=== PATIENT | male | born 1960 | race Hispanic/Latino ===

== ENCOUNTER 2019-06-29 16:55 | Inpatient (IN) | payer OTHER ==
[~2019-06-29] VITALS: Ht 167.6 cm; Wt 48.6 kg
[2019-06-29 17:40] LABS: BASOPHILS % (AUTO) 0.7 % (0.0-5.0); EOSINOPHILS % (AUTO) 0.2 % (0.0-8.0); HEMATOCRIT 40.6 % (42-54); LYMPHOCYTES % (AUTO) 8.8 % (21.0-51.0); MEAN CORPUSCULAR HEMOGLOBIN 30.2 pg (27.0-33.0); MEAN CORPUSCULAR HGB CONC 33.7 g/dL (32.0-36.0); MEAN CORPUSCULAR VOLUME 89.6 fL (79-99); MONOCYTES % (AUTO) 6.2 % (3.0-13.0); NEUTROPHILS % (AUTO) 78.5 % (40.0-77.0); NUCLEATED RED BLOOD CELLS 1.7 % (0.0-0.19); PLATELET COUNT (AUTO) 162 K/uL (130-400); RED BLOOD CELL COUNT(AUTO) 4.53 MIL/uL (4.50-6.20); RED CELL DISTRIBUTION WIDTH 14.1 % (11.0-15.5); WHITE BLOOD COUNT (AUTO) 16.8 K/uL (4.8-10.8)
[2019-06-29 17:50] LABS: CREATININE 0.8 mg/dL (0.5-1.5); POTASSIUM 4.1 mmol/L (3.5-5.1)
[2019-06-29] MEDS ORDERED: INSULIN HUMULIN R 100 UNIT/ML 3ML ONE (18:06)
[2019-06-29] MEDS ORDERED: ONDANSETRON HCL 4 MG/2 ML VIAL IV PRN (19:00)
[2019-06-29] MEDS ORDERED: MORPHINE SULFATE 2 MG/ML 1ML SYG IV PRN (19:00)
[2019-06-29] MEDS ORDERED: ACETAMINOPHEN 325 MG TAB PO PRN ×2 (19:00)
[2019-06-29] MEDS ORDERED: ALBUTEROL INHALER 90MCG/INH IH PRN (19:30)
[2019-06-29] MEDS: CEFTRIAXONE SODIUM 1 GM IV SCH (20:00)
[2019-06-29] MEDS: AZITHROMYCIN 500MG+NS 250ML 250 ML IV SCH (20:00)
[2019-06-29] MEDS: PHARMACY COMMUNICATION MISC SCH (20:00)
[2019-06-29 20:58] LABS: ABG BASE EXCESS 0.2 mmol/L (-2.0-3.0); ABG HCO3 23.5 mmol/L (21.0-28.0); ABG OXYGEN SATURATION 94.5 % (95.0-99.0); ABG PCO2 34 mmHg (35-48)
[2019-06-29] MEDS: FAMOTIDINE 20MG TAB 20 MG TAB PO SCH (21:00)
[2019-06-29] MEDS: INSULIN HUMULIN R 100 UNIT/ML 3ML SQ SCH (21:00)
[2019-06-29] MEDS ORDERED: ALBUTEROL SULFATE 0.083% 2.5 MG/3 ML INH IH SCH (22:00)
[2019-06-29 23:00] LABS: CRP QUANTITATIVE 333.7 mg/L (0.00-9.0)
[2019-06-30] MEDS: PHARMACY COMMUNICATION MISC SCH ×6 (04:00→20:00)
[2019-06-30] MEDS ORDERED: CEFTRIAXONE SODIUM 1 GM ONE (04:12)
[2019-06-30] MEDS ORDERED: AZITHROMYCIN 500MG+NS 250ML 250 ML IV ONE (04:12)
[2019-06-30 04:42] LABS: BASOPHILS % (AUTO) 0.8 % (0.0-5.0); HEMATOCRIT 39.4 % (42-54); LYMPHOCYTES % (AUTO) 6.6 % (21.0-51.0); MEAN CORPUSCULAR HEMOGLOBIN 30.5 pg (27.0-33.0); MEAN CORPUSCULAR HGB CONC 33.8 g/dL (32.0-36.0); MEAN CORPUSCULAR VOLUME 90.4 fL (79-99); MONOCYTES % (AUTO) 5.5 % (3.0-13.0); NEUTROPHILS % (AUTO) 81.7 % (40.0-77.0); NUCLEATED RED BLOOD CELLS 1.9 % (0.0-0.19); PLATELET COUNT (AUTO) 151 K/uL (130-400); RED BLOOD CELL COUNT(AUTO) 4.36 MIL/uL (4.50-6.20); RED CELL DISTRIBUTION WIDTH 13.8 % (11.0-15.5); WHITE BLOOD COUNT (AUTO) 16.4 K/uL (4.8-10.8)
[2019-06-30 05:16] LABS: CREATININE 0.7 mg/dL (0.5-1.5); POTASSIUM 4.1 mmol/L (3.5-5.1)
[2019-06-30] MEDS: INSULIN HUMULIN R 100 UNIT/ML 3ML SQ SCH ×4 (07:30→21:00)
[2019-06-30] MEDS ORDERED: ENOXAPARIN SODIUM 30 MG/0.3 ML SQ ONE (07:39)
[2019-06-30] MEDS ORDERED: FAMOTIDINE 20MG TAB 20 MG TAB ONE (07:39)
[2019-06-30] MEDS ORDERED: ENOXAPARIN SODIUM 30 MG/0.3 ML SQ SCH (09:00)
[2019-06-30] MEDS ORDERED: ENOXAPARIN SODIUM 40 MG/0.4 ML SYRINGE SQ SCH (09:00)
[2019-06-30] MEDS ORDERED: INSULIN HUMULIN R 100 UNIT/ML 3ML ONE ×2 (09:13→22:21)
[2019-06-30 10:44] LABS: CRP QUANTITATIVE 210.7 mg/L (0.00-9.0)
[2019-06-30] MEDS: AZITHROMYCIN 500MG+NS 250ML 250 ML IV SCH (20:00)
[2019-06-30] MEDS: CEFTRIAXONE SODIUM 1 GM IV SCH (20:00)
[2019-06-30] MEDS: FAMOTIDINE 20MG TAB 20 MG TAB PO SCH (21:00)
[2019-06-30] MEDS ORDERED: ENOXAPARIN SODIUM 60 MG/0.6 ML SQ ONE (21:56)
[2019-06-30] MEDS: ENOXAPARIN SODIUM 60 MG/0.6 ML SQ SCH (21:59)
[2019-07-01] VITALS (29 sets, daily range): BP systolic 101–133; BP diastolic 50–87
[2019-07-01] MEDS ORDERED: SODIUM CHLORIDE 0.9% 250 ML IV ONE (03:28)
[2019-07-01] MEDS: PHARMACY COMMUNICATION MISC SCH ×6 (04:00→20:00)
[2019-07-01 05:04] LABS: BASOPHILS % (AUTO) 0.8 % (0.0-5.0); EOSINOPHILS % (AUTO) 1.6 % (0.0-8.0); HEMATOCRIT 38.2 % (42-54); LYMPHOCYTES % (AUTO) 10.6 % (21.0-51.0); MEAN CORPUSCULAR HEMOGLOBIN 30.2 pg (27.0-33.0); MEAN CORPUSCULAR HGB CONC 33.2 g/dL (32.0-36.0); MEAN CORPUSCULAR VOLUME 90.7 fL (79-99); MONOCYTES % (AUTO) 5.2 % (3.0-13.0); NEUTROPHILS % (AUTO) 77.1 % (40.0-77.0); NUCLEATED RED BLOOD CELLS 0.4 % (0.0-0.19); PLATELET COUNT (AUTO) 214 K/uL (130-400); RED BLOOD CELL COUNT(AUTO) 4.21 MIL/uL (4.50-6.20); RED CELL DISTRIBUTION WIDTH 14.1 % (11.0-15.5); WHITE BLOOD COUNT (AUTO) 11.5 K/uL (4.8-10.8)
[2019-07-01 05:21] LABS: CREATININE 0.6 mg/dL (0.5-1.5); POTASSIUM 3.1 mmol/L (3.5-5.1)
[2019-07-01 05:44] LABS: CRP QUANTITATIVE 253.6 mg/L (0.00-9.0)
[2019-07-01] MEDS: INSULIN HUMULIN R 100 UNIT/ML 3ML SQ SCH ×4 (06:30→21:26)
[2019-07-01] MEDS: FAMOTIDINE 20MG TAB 20 MG TAB PO SCH ×2 (08:09→19:46)
[2019-07-01] MEDS: ENOXAPARIN SODIUM 60 MG/0.6 ML SQ SCH ×2 (08:10→19:47)
[2019-07-01] MEDS ORDERED: POTASSIUM CHLORIDE 20MEQ/100ML 100 ML IV PRN (13:15)
[2019-07-01] MEDS ORDERED: LIDOCAINE HCL-MPF 1% 2ML VIAL IV PRN (13:15)
--- NOTE | 2019-07-01 14:00 | NUR ---
DC PLAN PATIENT IN [facility] ICU. CALLED SPOUSE. NO ANSWER LEFT MESSAGE. Addendum: 07/01/19 at 1401 by DANNIE LEWIS RN CM Amended: Links added.
[2019-07-01] MEDS: POTASSIUM CHLORIDE 10% ELIXIR 20 MEQ/15 ML UDCUP PO PRN (17:05)
--- NOTE | 2019-07-01 17:05 | NUR ---
SUSIP SW attempted to contact patient's spouse, Kerri Zazueta, [phone] but was only able to leave a message. Initial assessment pending.
[2019-07-01] MEDS: CEFTRIAXONE SODIUM 1 GM IV SCH (19:46)
[2019-07-01] MEDS: AZITHROMYCIN 500MG+NS 250ML 250 ML IV SCH (19:46)
[2019-07-02] VITALS (25 sets, daily range): BP systolic 110–148; BP diastolic 65–96
[2019-07-02 06:20] LABS: BASOPHILS % (AUTO) 1.1 % (0.0-5.0); EOSINOPHILS % (AUTO) 1.9 % (0.0-8.0); HEMATOCRIT 37.6 % (42-54); LYMPHOCYTES % (AUTO) 15.1 % (21.0-51.0); MEAN CORPUSCULAR HEMOGLOBIN 30.9 pg (27.0-33.0); MEAN CORPUSCULAR HGB CONC 34.3 g/dL (32.0-36.0); MONOCYTES % (AUTO) 6.9 % (3.0-13.0); NEUTROPHILS % (AUTO) 70.3 % (40.0-77.0); PLATELET COUNT (AUTO) 292 K/uL (130-400); RED BLOOD CELL COUNT(AUTO) 4.18 MIL/uL (4.50-6.20); RED CELL DISTRIBUTION WIDTH 14.1 % (11.0-15.5); WHITE BLOOD COUNT (AUTO) 8.7 K/uL (4.8-10.8)
[2019-07-02] MEDS: INSULIN HUMULIN R 100 UNIT/ML 3ML SQ SCH ×4 (06:39→22:20)
[2019-07-02 06:54] LABS: CREATININE 0.6 mg/dL (0.5-1.5); POTASSIUM 3.9 mmol/L (3.5-5.1)
[2019-07-02 08:32] LABS: CRP QUANTITATIVE 191.8 mg/L (0.00-9.0)
[2019-07-02] MEDS: FAMOTIDINE 20MG TAB 20 MG TAB PO SCH ×2 (08:45→20:33)
[2019-07-02] MEDS: ENOXAPARIN SODIUM 60 MG/0.6 ML SQ SCH ×2 (08:45→20:33)
[2019-07-02] MEDS: AZITHROMYCIN 500MG+NS 250ML 250 ML IV SCH (20:31)
[2019-07-02] MEDS: CEFTRIAXONE SODIUM 1 GM IV SCH (20:34)
[2019-07-03] VITALS (24 sets, daily range): BP systolic 95–160; BP diastolic 62–82
[2019-07-03 05:05] LABS: BASOPHILS % (AUTO) 1.3 % (0.0-5.0); EOSINOPHILS % (AUTO) 3.8 % (0.0-8.0); LYMPHOCYTES % (AUTO) 17.7 % (21.0-51.0); MEAN CORPUSCULAR HEMOGLOBIN 29.9 pg (27.0-33.0); MEAN CORPUSCULAR HGB CONC 33.2 g/dL (32.0-36.0); MONOCYTES % (AUTO) 10.6 % (3.0-13.0); NEUTROPHILS % (AUTO) 62.1 % (40.0-77.0); PLATELET COUNT (AUTO) 369 K/uL (130-400); RED BLOOD CELL COUNT(AUTO) 4.11 MIL/uL (4.50-6.20); RED CELL DISTRIBUTION WIDTH 14.2 % (11.0-15.5); WHITE BLOOD COUNT (AUTO) 6.9 K/uL (4.8-10.8)
[2019-07-03 05:22] LABS: CREATININE 0.5 mg/dL (0.5-1.5); CRP QUANTITATIVE 123.3 mg/L (0.00-9.0); POTASSIUM 3.5 mmol/L (3.5-5.1)
[2019-07-03] MEDS: INSULIN HUMULIN R 100 UNIT/ML 3ML SQ SCH ×4 (06:34→22:23)
[2019-07-03] MEDS: FAMOTIDINE 20MG TAB 20 MG TAB PO SCH ×2 (08:38→20:18)
[2019-07-03] MEDS: POTASSIUM CHLORIDE 20 MEQ ERTAB PO PRN (08:39)
[2019-07-03] MEDS: ENOXAPARIN SODIUM 60 MG/0.6 ML SQ SCH ×2 (08:39→20:19)
[2019-07-03] MEDS: AZITHROMYCIN 500MG+NS 250ML 250 ML IV SCH (20:17)
[2019-07-03] MEDS: CEFTRIAXONE SODIUM 1 GM IV SCH (20:18)
[2019-07-04] VITALS (20 sets, daily range): BP systolic 123–150; BP diastolic 65–79
[2019-07-04 05:32] LABS: BASOPHILS % (AUTO) 1.1 % (0.0-5.0); EOSINOPHILS % (AUTO) 2.1 % (0.0-8.0); HEMATOCRIT 38.6 % (42-54); LYMPHOCYTES % (AUTO) 16.7 % (21.0-51.0); MEAN CORPUSCULAR HEMOGLOBIN 29.5 pg (27.0-33.0); MEAN CORPUSCULAR HGB CONC 33.2 g/dL (32.0-36.0); MEAN CORPUSCULAR VOLUME 88.9 fL (79-99); MONOCYTES % (AUTO) 11.3 % (3.0-13.0); NEUTROPHILS % (AUTO) 64.8 % (40.0-77.0); PLATELET COUNT (AUTO) 462 K/uL (130-400); RED BLOOD CELL COUNT(AUTO) 4.34 MIL/uL (4.50-6.20); WHITE BLOOD COUNT (AUTO) 8.2 K/uL (4.8-10.8)
[2019-07-04 05:53] LABS: ALBUMIN 1.7 g/dL (3.5-5.0); BILIRUBIN,TOTAL 0.4 mg/dL (0.2-1.0); CREATININE 0.6 mg/dL (0.5-1.5); CRP QUANTITATIVE 90.6 mg/L (0.00-9.0); POTASSIUM 3.8 mmol/L (3.5-5.1); TOTAL PROTEIN, SERUM 7.2 g/dL (6.0-8.3)
[2019-07-04] MEDS: INSULIN HUMULIN R 100 UNIT/ML 3ML SQ SCH ×4 (06:17→20:33)
[2019-07-04] MEDS: FAMOTIDINE 20MG TAB 20 MG TAB PO SCH ×2 (08:23→20:12)
[2019-07-04] MEDS: ENOXAPARIN SODIUM 60 MG/0.6 ML SQ SCH ×2 (08:23→20:12)
[2019-07-04] MEDS: POTASSIUM CHLORIDE 20 MEQ ERTAB PO PRN (17:09)
[2019-07-04] MEDS: CEFTRIAXONE SODIUM 1 GM IV SCH (20:11)
[2019-07-04] MEDS: AZITHROMYCIN 500MG+NS 250ML 250 ML IV SCH (20:12)
[2019-07-05] VITALS (18 sets, daily range): BP systolic 124–142; BP diastolic 68–86
[2019-07-05 05:11] LABS: EOSINOPHILS % (AUTO) 2.1 % (0.0-8.0); HEMATOCRIT 39.4 % (42-54); LYMPHOCYTES % (AUTO) 13.3 % (21.0-51.0); MEAN CORPUSCULAR HEMOGLOBIN 29.9 pg (27.0-33.0); MEAN CORPUSCULAR HGB CONC 33.5 g/dL (32.0-36.0); MEAN CORPUSCULAR VOLUME 89.1 fL (79-99); MONOCYTES % (AUTO) 12.8 % (3.0-13.0); NEUTROPHILS % (AUTO) 67.1 % (40.0-77.0); PLATELET COUNT (AUTO) 496 K/uL (130-400); RED BLOOD CELL COUNT(AUTO) 4.42 MIL/uL (4.50-6.20); RED CELL DISTRIBUTION WIDTH 13.9 % (11.0-15.5); WHITE BLOOD COUNT (AUTO) 8.7 K/uL (4.8-10.8)
[2019-07-05 05:38] LABS: ALBUMIN 1.8 g/dL (3.5-5.0); BILIRUBIN,TOTAL 0.5 mg/dL (0.2-1.0); CREATININE 0.7 mg/dL (0.5-1.5); POTASSIUM 4.1 mmol/L (3.5-5.1); TOTAL PROTEIN, SERUM 7.5 g/dL (6.0-8.3)
[2019-07-05] MEDS: INSULIN HUMULIN R 100 UNIT/ML 3ML SQ SCH ×4 (06:14→21:13)
[2019-07-05] MEDS: FAMOTIDINE 20MG TAB 20 MG TAB PO SCH ×2 (08:40→20:02)
[2019-07-05] MEDS: ENOXAPARIN SODIUM 60 MG/0.6 ML SQ SCH ×2 (08:41→20:02)
[2019-07-05] MEDS ORDERED: GUAIFENESIN-CODEINE 5 ML SYRUP PO PRN (11:45)
[2019-07-05] MEDS ORDERED: IOHEXOL-350 75 ML VIAL IV ONE (12:29)
--- NOTE | 2019-07-05 14:30 | NUR ---
CM NOTE SW attempted to contact patient's spouse, Kerri Zazueta, [phone] but was only able to leave a message. ALICIA will continue to follow up.
--- NOTE | 2019-07-05 15:02 | NUR ---
KILLIAN SCREEN - LOS X 6, BMI <19.0 Pt admitted with Acute Respiratory Distress. Pt with increased nutrient needs. Recommend 60mL promod BID. Recommend 500mg Vitamin C, BID. RD to continue to monitor. Please notify as additional nutrition concerns arise. Thank you. Addendum: 07/05/19 at [address] Amended: Links added.
[2019-07-05] MEDS ORDERED: INSU100V12 SQ (18:52)
[2019-07-05] MEDS: METHYLPREDNISOLONE SOD SUCC 40MG/ML 1ML IVP SCH (20:02)
[2019-07-05] MEDS: CEFTRIAXONE SODIUM 1 GM IV SCH (20:02)
[2019-07-05] MEDS: AZITHROMYCIN 500MG+NS 250ML 250 ML IV SCH (20:02)
[2019-07-06] VITALS (23 sets, daily range): BP systolic 113–149; BP diastolic 64–85
[2019-07-06] MEDS: INSULIN HUMULIN R 100 UNIT/ML 3ML SQ SCH ×4 (05:56→20:42)
[2019-07-06] MEDS: INSULIN GLARGINE 100 UNITS/ML 10 ML VIAL SQ SCH ×2 (05:59→17:47)
[2019-07-06 06:36] LABS: CRP QUANTITATIVE 128.6 mg/L (0.00-9.0)
[2019-07-06 06:49] LABS: ALBUMIN 1.9 g/dL (3.5-5.0); BILIRUBIN,TOTAL 0.3 mg/dL (0.2-1.0); CREATININE 0.6 mg/dL (0.5-1.5); POTASSIUM 4.4 mmol/L (3.5-5.1)
[2019-07-06 07:01] LABS: BASOPHILS % (AUTO) 0.8 % (0.0-5.0); EOSINOPHILS % (AUTO) 0.4 % (0.0-8.0); HEMATOCRIT 40.8 % (42-54); LYMPHOCYTES % (AUTO) 6.7 % (21.0-51.0); MEAN CORPUSCULAR HEMOGLOBIN 29.7 pg (27.0-33.0); MEAN CORPUSCULAR HGB CONC 33.1 g/dL (32.0-36.0); MEAN CORPUSCULAR VOLUME 89.7 fL (79-99); MONOCYTES % (AUTO) 2.8 % (3.0-13.0); PLATELET COUNT (AUTO) 522 K/uL (130-400); RED BLOOD CELL COUNT(AUTO) 4.55 MIL/uL (4.50-6.20); RED CELL DISTRIBUTION WIDTH 14.3 % (11.0-15.5); WHITE BLOOD COUNT (AUTO) 9.9 K/uL (4.8-10.8)
[2019-07-06] MEDS: METHYLPREDNISOLONE SOD SUCC 40MG/ML 1ML IVP SCH ×2 (08:05→20:38)
[2019-07-06] MEDS: FAMOTIDINE 20MG TAB 20 MG TAB PO SCH ×2 (08:05→20:38)
[2019-07-06] MEDS: ENOXAPARIN SODIUM 60 MG/0.6 ML SQ SCH ×2 (08:05→20:39)
[2019-07-06] MEDS: AZITHROMYCIN 500MG+NS 250ML 250 ML IV SCH (20:38)
[2019-07-06] MEDS: CEFTRIAXONE SODIUM 1 GM IV SCH (20:38)
[2019-07-07] VITALS (17 sets, daily range): BP systolic 116–171; BP diastolic 64–88
[2019-07-07] MEDS: INSULIN HUMULIN R 100 UNIT/ML 3ML SQ SCH ×4 (07:30→20:38)
[2019-07-07] MEDS: FAMOTIDINE 20MG TAB 20 MG TAB PO SCH ×2 (08:18→20:22)
[2019-07-07] MEDS: METHYLPREDNISOLONE SOD SUCC 40MG/ML 1ML IVP SCH ×2 (08:18→20:22)
[2019-07-07] MEDS: ENOXAPARIN SODIUM 60 MG/0.6 ML SQ SCH ×2 (08:18→20:24)
[2019-07-07] MEDS: INSULIN GLARGINE 100 UNITS/ML 10 ML VIAL SQ SCH ×2 (08:40→17:01)
[2019-07-07 10:30] LABS: BASOPHILS % (AUTO) 0.3 % (0.0-5.0); HEMATOCRIT 38.3 % (42-54); LYMPHOCYTES % (AUTO) 10.6 % (21.0-51.0); MEAN CORPUSCULAR HEMOGLOBIN 30.5 pg (27.0-33.0); MEAN CORPUSCULAR HGB CONC 33.4 g/dL (32.0-36.0); MEAN CORPUSCULAR VOLUME 91.2 fL (79-99); MONOCYTES % (AUTO) 6.5 % (3.0-13.0); NEUTROPHILS % (AUTO) 81.5 % (40.0-77.0); PLATELET COUNT (AUTO) 592 K/uL (130-400); RED CELL DISTRIBUTION WIDTH 13.9 % (11.0-15.5)
[2019-07-07 10:39] LABS: CREATININE 0.6 mg/dL (0.5-1.5); POTASSIUM 3.8 mmol/L (3.5-5.1)
[2019-07-07 10:42] LABS: CRP QUANTITATIVE 54.7 mg/L (0.00-9.0); PHOSPHORUS 3.7 mg/dL (2.5-4.9)
[2019-07-07] MEDS: AZITHROMYCIN 500MG+NS 250ML 250 ML IV SCH (20:22)
[2019-07-07] MEDS: CEFTRIAXONE SODIUM 1 GM IV SCH (20:22)
[2019-07-08] VITALS (22 sets, daily range): BP systolic 126–159; BP diastolic 67–93
[2019-07-08 04:57] LABS: BASOPHILS % (AUTO) 0.2 % (0.0-5.0); HEMATOCRIT 38.3 % (42-54); LYMPHOCYTES % (AUTO) 15.7 % (21.0-51.0); MEAN CORPUSCULAR HEMOGLOBIN 29.9 pg (27.0-33.0); MEAN CORPUSCULAR HGB CONC 32.9 g/dL (32.0-36.0); MONOCYTES % (AUTO) 6.3 % (3.0-13.0); NEUTROPHILS % (AUTO) 76.9 % (40.0-77.0); PLATELET COUNT (AUTO) 620 K/uL (130-400); RED BLOOD CELL COUNT(AUTO) 4.21 MIL/uL (4.50-6.20); RED CELL DISTRIBUTION WIDTH 14.1 % (11.0-15.5); WHITE BLOOD COUNT (AUTO) 9.5 K/uL (4.8-10.8)
--- NOTE | 2019-07-08 05:00 | NUR ---
Ignacia CAMP ASSISTANT called to see if patient was fariha enough to move out of ICU. CAMP ASSISTANT stated that O2 is too high to move out.
[2019-07-08 05:11] LABS: CREATININE 0.6 mg/dL (0.5-1.5); CRP QUANTITATIVE 35.7 mg/L (0.00-9.0); POTASSIUM 3.9 mmol/L (3.5-5.1)
[2019-07-08] MEDS: INSULIN HUMULIN R 100 UNIT/ML 3ML SQ SCH ×4 (05:20→20:48)
[2019-07-08] MEDS: INSULIN GLARGINE 100 UNITS/ML 10 ML VIAL SQ SCH ×3 (05:20→23:43)
[2019-07-08] MEDS: METHYLPREDNISOLONE SOD SUCC 40MG/ML 1ML IVP SCH ×2 (10:23→20:46)
[2019-07-08] MEDS: ENOXAPARIN SODIUM 60 MG/0.6 ML SQ SCH ×2 (10:23→20:43)
[2019-07-08] MEDS: FAMOTIDINE 20MG TAB 20 MG TAB PO SCH ×2 (10:23→20:43)
--- NOTE | 2019-07-08 13:03 | NUR ---
KILLIAN FOLLOW UP NOTE Pt with 75gm CC diet order. 60mL Promod BID in place for increased protein nutrition needs. Recommend to continue POC. Please notify as additional nutrition concerns arise. Thank you. Addendum: 07/08/19 at [address] Amended: Links added.
[2019-07-08] MEDS: CEFTRIAXONE SODIUM 1 GM IV SCH (20:42)
[2019-07-08] MEDS: AZITHROMYCIN 500MG+NS 250ML 250 ML IV SCH (20:42)
[2019-07-08] MEDS ORDERED: SODIUM BICARB 50MEQ 50ML VIAL IV STA (23:26)
[2019-07-09] VITALS (22 sets, daily range): BP systolic 124–151; BP diastolic 62–115
[2019-07-09] MEDS ORDERED: METHYLPREDNISOLONE SOD SUCC 40MG/ML 1ML IVP SCH (00:15)
[2019-07-09] MEDS: INSULIN LISPRO 100 UNIT/ML 3ML SQ SCH ×7 (05:52→21:15)
[2019-07-09] MEDS ORDERED: SODIUM BICARB 50MEQ 50ML VIAL IV SCH (06:00)
[2019-07-09 06:21] LABS: BASOPHILS % (AUTO) 0.3 % (0.0-5.0); HEMATOCRIT 41.8 % (42-54); LYMPHOCYTES % (AUTO) 10.8 % (21.0-51.0); MEAN CORPUSCULAR HEMOGLOBIN 29.8 pg (27.0-33.0); MEAN CORPUSCULAR HGB CONC 32.8 g/dL (32.0-36.0); MEAN CORPUSCULAR VOLUME 90.9 fL (79-99); MONOCYTES % (AUTO) 8.6 % (3.0-13.0); NEUTROPHILS % (AUTO) 79.1 % (40.0-77.0); PLATELET COUNT (AUTO) 642 K/uL (130-400); RED CELL DISTRIBUTION WIDTH 14.2 % (11.0-15.5); WHITE BLOOD COUNT (AUTO) 11.9 K/uL (4.8-10.8)
[2019-07-09 06:31] LABS: CREATININE 0.7 mg/dL (0.5-1.5); CRP QUANTITATIVE 23.7 mg/L (0.00-9.0); POTASSIUM 3.8 mmol/L (3.5-5.1)
[2019-07-09 07:06] LABS: B-TYPE NATRIURETIC PEPTIDE 13 pg/mL (0-100)
[2019-07-09] MEDS: ENOXAPARIN SODIUM 60 MG/0.6 ML SQ SCH ×2 (08:22→21:11)
[2019-07-09] MEDS: FAMOTIDINE 20MG TAB 20 MG TAB PO SCH ×2 (08:22→21:10)
[2019-07-09] MEDS: METHYLPREDNISOLONE SOD SUCC 40MG/ML 1ML IVP SCH ×2 (08:22→21:08)
[2019-07-09 08:38] LABS: ABG HCO3 26.3 mmol/L (21.0-28.0); ABG OXYGEN SATURATION 94.7 % (95.0-99.0); ABG PCO2 40 mmHg (35-48)
[2019-07-09] MEDS: INSULIN GLARGINE 100 UNITS/ML 10 ML VIAL SQ SCH (21:10)
[2019-07-10] VITALS (23 sets, daily range): BP systolic 116–159; BP diastolic 66–92
[2019-07-10] MEDS: INSULIN LISPRO 100 UNIT/ML 3ML SQ SCH ×7 (05:32→20:33)
[2019-07-10 05:56] LABS: HEMATOCRIT 40.8 % (42-54); MEAN CORPUSCULAR HEMOGLOBIN 29.8 pg (27.0-33.0); MEAN CORPUSCULAR HGB CONC 32.8 g/dL (32.0-36.0); MEAN CORPUSCULAR VOLUME 90.9 fL (79-99); PLATELET COUNT (AUTO) 557 K/uL (130-400); RED BLOOD CELL COUNT(AUTO) 4.49 MIL/uL (4.50-6.20); RED CELL DISTRIBUTION WIDTH 14.1 % (11.0-15.5); WHITE BLOOD COUNT (AUTO) 9.6 K/uL (4.8-10.8)
[2019-07-10 06:12] LABS: CREATININE 0.5 mg/dL (0.5-1.5); POTASSIUM 4.1 mmol/L (3.5-5.1)
[2019-07-10 07:34] LABS: LYMPHOCYTES % (MANUAL) 17 % (22-44); MONOCYTES % (MANUAL) 11 % (2-9); SEGMENTED NEUTROPHILS % 72 % (40-70)
[2019-07-10 07:35] LABS: PLATELET MORPHOLOGY COMMENT ADEQUATE
[2019-07-10 08:17] LABS: MAN.DIFF COMMENT-IMPRESSION MANUAL DIFFERENTIAL
[2019-07-10] MEDS: FAMOTIDINE 20MG TAB 20 MG TAB PO SCH ×2 (08:27→20:20)
[2019-07-10] MEDS: METHYLPREDNISOLONE SOD SUCC 40MG/ML 1ML IVP SCH ×2 (08:28→20:20)
[2019-07-10] MEDS: ENOXAPARIN SODIUM 60 MG/0.6 ML SQ SCH ×2 (08:37→20:22)
--- NOTE | 2019-07-10 12:23 | NUR ---
PATIENT TO BE SEEN BY PT ON THURSDAY. Addendum: 07/10/19 at 1224 by MAI STALEY PT Amended: Links added.
[2019-07-10] MEDS: INSULIN GLARGINE 100 UNITS/ML 10 ML VIAL SQ SCH (20:35)
[2019-07-11] VITALS (24 sets, daily range): BP systolic 123–164; BP diastolic 66–96
[2019-07-11] MEDS: INSULIN LISPRO 100 UNIT/ML 3ML SQ SCH ×7 (06:20→21:00)
[2019-07-11] MEDS: FAMOTIDINE 20MG TAB 20 MG TAB PO SCH ×2 (08:38→20:54)
[2019-07-11] MEDS: METHYLPREDNISOLONE SOD SUCC 40MG/ML 1ML IVP SCH ×2 (08:39→20:53)
[2019-07-11] MEDS: ENOXAPARIN SODIUM 60 MG/0.6 ML SQ SCH ×2 (09:20→20:54)
[2019-07-11 10:14] LABS: BASOPHILS % (AUTO) 0.3 % (0.0-5.0); EOSINOPHILS % (AUTO) 0.1 % (0.0-8.0); HEMATOCRIT 42.2 % (42-54); LYMPHOCYTES % (AUTO) 22.1 % (21.0-51.0); MEAN CORPUSCULAR HEMOGLOBIN 29.5 pg (27.0-33.0); MEAN CORPUSCULAR HGB CONC 32.5 g/dL (32.0-36.0); MEAN CORPUSCULAR VOLUME 90.8 fL (79-99); MONOCYTES % (AUTO) 9.1 % (3.0-13.0); NEUTROPHILS % (AUTO) 67.1 % (40.0-77.0); PLATELET COUNT (AUTO) 555 K/uL (130-400); RED BLOOD CELL COUNT(AUTO) 4.65 MIL/uL (4.50-6.20); RED CELL DISTRIBUTION WIDTH 14.1 % (11.0-15.5); WHITE BLOOD COUNT (AUTO) 10.9 K/uL (4.8-10.8)
--- NOTE | 2019-07-11 12:25 | NUR ---
FL PLAN PATIENT IN ISOLATION FOR COVID 19. CALLED SON [phone] IKER. SAID THAT MOM HAD NOT ANSWERED BECAUSE SHE HAD JUST GOTTEN OUT OF HOSPITAL HER SELF. HE HAS BEEN KEEPING AN EYE ON HER AND HELPING HER OUT. THE PLAN AT THIS TIME IS TO RETURN HOME FOR PATIENT. AWARE THAT PATIENT MIGHT NEED SNF. SAID WOULD PREFER HOME HEALTH. EXPLAINED THAT [facility] HAD NOT GIVEN HOME HEALTH GUIDANCE FOR COVID AT THIS TIME. ONCE PATIENT READY THEY MIGHT HAVE MADE A DECISION. SAID IF NO HOME HEALTH PATIENT WOULD STILL GO HOME AND WOULD CARE FOR DAD. Addendum: 07/11/19 at 1230 by DANNIE LEWIS RN CM Amended: Links added.
[2019-07-11] MEDS: INSULIN GLARGINE 100 UNITS/ML 10 ML VIAL SQ SCH (20:55)
[2019-07-12] VITALS (8 sets, daily range): BP systolic 126–144; BP diastolic 71–85
[2019-07-12 05:09] LABS: BASOPHILS % (AUTO) 0.3 % (0.0-5.0); EOSINOPHILS % (AUTO) 0.1 % (0.0-8.0); LYMPHOCYTES % (AUTO) 20.5 % (21.0-51.0); MEAN CORPUSCULAR HEMOGLOBIN 29.4 pg (27.0-33.0); MEAN CORPUSCULAR HGB CONC 32.7 g/dL (32.0-36.0); MEAN CORPUSCULAR VOLUME 89.9 fL (79-99); MONOCYTES % (AUTO) 6.7 % (3.0-13.0); NEUTROPHILS % (AUTO) 70.3 % (40.0-77.0); PLATELET COUNT (AUTO) 516 K/uL (130-400); RED BLOOD CELL COUNT(AUTO) 4.56 MIL/uL (4.50-6.20); RED CELL DISTRIBUTION WIDTH 14.1 % (11.0-15.5); WHITE BLOOD COUNT (AUTO) 9.6 K/uL (4.8-10.8)
[2019-07-12 05:30] LABS: ALBUMIN 2.4 g/dL (3.5-5.0); BILIRUBIN,TOTAL 0.3 mg/dL (0.2-1.0); CREATININE 0.6 mg/dL (0.5-1.5); CRP QUANTITATIVE 7.2 mg/L (0.00-9.0); TOTAL PROTEIN, SERUM 7.3 g/dL (6.0-8.3)
[2019-07-12] MEDS: INSULIN LISPRO 100 UNIT/ML 3ML SQ SCH ×7 (06:46→20:56)
[2019-07-12] MEDS: FAMOTIDINE 20MG TAB 20 MG TAB PO SCH ×2 (08:16→20:55)
[2019-07-12] MEDS: ENOXAPARIN SODIUM 60 MG/0.6 ML SQ SCH ×2 (08:17→20:54)
[2019-07-12] MEDS: METHYLPREDNISOLONE SOD SUCC 40MG/ML 1ML IVP SCH ×4 (08:19→22:17)
[2019-07-12] MEDS: LACTULOSE 20 GM/30 ML UDCUP PO PRN (10:03)
--- NOTE | 2019-07-12 13:14 | NUR ---
RD FOLLOW UP NOTE Pt with improving appetite. Tolerating 75gm CCD, 60mL Promod BID. No report of Nausea/Vomiting. Noted LBM 07/04/19; Recommend stool softener/laxative as medically feasible. Low BMI (17.8). Recommend add Glucerna BID. RD to continue to monitor. Please notify as additional nutrition concerns arise. Thank you. Addendum: 07/12/19 at [address] Amended: Links added.
[2019-07-12] MEDS: INSULIN GLARGINE 100 UNITS/ML 10 ML VIAL SQ SCH (20:55)
[2019-07-12] MEDS ORDERED: INSULIN LISPRO 100 UNIT/ML 3ML SQ SCH (22:15)
[2019-07-12] MEDS ORDERED: INSULIN GLARGINE 100 UNITS/ML 10 ML VIAL SQ ONE (22:15)
[2019-07-13] VITALS (8 sets, daily range): BP systolic 114–133; BP diastolic 67–82
[2019-07-13 05:38] LABS: BASOPHILS % (AUTO) 0.2 % (0.0-5.0); HEMATOCRIT 42.9 % (42-54); LYMPHOCYTES % (AUTO) 17.4 % (21.0-51.0); MEAN CORPUSCULAR HEMOGLOBIN 30.6 pg (27.0-33.0); MEAN CORPUSCULAR VOLUME 89.9 fL (79-99); MONOCYTES % (AUTO) 9.6 % (3.0-13.0); NEUTROPHILS % (AUTO) 70.7 % (40.0-77.0); PLATELET COUNT (AUTO) 540 K/uL (130-400); RED BLOOD CELL COUNT(AUTO) 4.77 MIL/uL (4.50-6.20); RED CELL DISTRIBUTION WIDTH 13.9 % (11.0-15.5); WHITE BLOOD COUNT (AUTO) 12.5 K/uL (4.8-10.8)
[2019-07-13] MEDS: INSULIN LISPRO 100 UNIT/ML 3ML SQ SCH ×7 (05:54→21:10)
[2019-07-13] MEDS: METHYLPREDNISOLONE SOD SUCC 40MG/ML 1ML IVP SCH ×3 (05:57→20:21)
[2019-07-13 06:00] LABS: ALBUMIN 2.7 g/dL (3.5-5.0); BILIRUBIN,TOTAL 0.3 mg/dL (0.2-1.0); CREATININE 0.5 mg/dL (0.5-1.5); CRP QUANTITATIVE 5.5 mg/L (0.00-9.0); POTASSIUM 3.9 mmol/L (3.5-5.1); TOTAL PROTEIN, SERUM 7.4 g/dL (6.0-8.3)
[2019-07-13] MEDS: ENOXAPARIN SODIUM 60 MG/0.6 ML SQ SCH ×2 (09:12→20:22)
[2019-07-13] MEDS: FAMOTIDINE 20MG TAB 20 MG TAB PO SCH ×2 (09:12→20:21)
[2019-07-13] MEDS: LACTULOSE 20 GM/30 ML UDCUP PO PRN (17:18)
[2019-07-13] MEDS: INSULIN GLARGINE 100 UNITS/ML 10 ML VIAL SQ SCH (21:11)
[2019-07-14 04:05] VITALS: BP 126/79
[2019-07-14 05:10] LABS: BASOPHILS % (AUTO) 0.3 % (0.0-5.0); EOSINOPHILS % (AUTO) 0.2 % (0.0-8.0); HEMATOCRIT 42.7 % (42-54); LYMPHOCYTES % (AUTO) 20.1 % (21.0-51.0); MEAN CORPUSCULAR HEMOGLOBIN 29.6 pg (27.0-33.0); MEAN CORPUSCULAR HGB CONC 32.8 g/dL (32.0-36.0); MEAN CORPUSCULAR VOLUME 90.3 fL (79-99); MONOCYTES % (AUTO) 9.9 % (3.0-13.0); NEUTROPHILS % (AUTO) 67.2 % (40.0-77.0); PLATELET COUNT (AUTO) 489 K/uL (130-400); RED BLOOD CELL COUNT(AUTO) 4.73 MIL/uL (4.50-6.20); RED CELL DISTRIBUTION WIDTH 14.1 % (11.0-15.5); WHITE BLOOD COUNT (AUTO) 13.1 K/uL (4.8-10.8)
[2019-07-14 05:46] LABS: ALBUMIN 2.7 g/dL (3.5-5.0); BILIRUBIN,TOTAL 0.3 mg/dL (0.2-1.0); CREATININE 0.6 mg/dL (0.5-1.5); POTASSIUM 3.7 mmol/L (3.5-5.1); TOTAL PROTEIN, SERUM 7.3 g/dL (6.0-8.3)
[2019-07-14] MEDS: INSULIN LISPRO 100 UNIT/ML 3ML SQ SCH ×5 (05:57→21:19)
[2019-07-14] MEDS: LACTULOSE 20 GM/30 ML UDCUP PO PRN (06:26)
[2019-07-14] MEDS: METHYLPREDNISOLONE SOD SUCC 40MG/ML 1ML IVP SCH (06:26)
[2019-07-14 08:00] VITALS: BP 135/83
[2019-07-14] MEDS: FAMOTIDINE 20MG TAB 20 MG TAB PO SCH ×2 (09:35→21:16)
[2019-07-14] MEDS: ENOXAPARIN SODIUM 60 MG/0.6 ML SQ SCH (09:36)
[2019-07-14] MEDS ORDERED: PRED10B PO (11:09)
[2019-07-14 12:31] VITALS: BP 121/74
--- NOTE | 2019-07-14 13:46 | NUR ---
SUSI PLAN PATIENT QUALIFIED FOR THIS MORNING. SPOKE TO HIM OVER THE PHONE SAID OKAY TO SET UP O2 ANY AVAILABLE IN NETWORK. SENT INFO TO [facility]. CALLED ME BACK SAID THEY RAN OUT OF CONCENTRATORS AGAIN WILL NOT HAVE TILL THU. CANCELLED WITH THEM SENT INFO TO [facility] PATIENT. GARCIA WILL CONTINUE TO FOLLOW. Addendum: 07/14/19 at 1350 by DANNIE LEWIS RN CM Amended: Links added.
[2019-07-14] MEDS ORDERED: BISACODYL 10 MG SUPP.RECT RC ONE (14:30)
--- NOTE | 2019-07-14 14:55 | NUR ---
DIGITAL DISIMPACTION PERFORMED ORDERED. SOFT, BROWN STOOL OBTAINED. CARE RENDERED AND POSITIONED IN BED PER PT.'S REQUEST. CALL LIGHT WITHIN REACH, VERBALIZED ABILITY TO USE.
--- NOTE | 2019-07-14 15:05 | NUR ---
SUSI MATTHEWS CALLED FROM [facility]IENT SAID PATIENT ACCEPTED WILL BE DELIVERING EQUIPMENT TO HOME. FAMILY TO BRING ON DIVISION TOLL WIRE CHIEF. LET NURSE KNOW OF PLAN. Addendum: 07/14/19 at 1506 by DANNIE LEWIS RN CM Amended: Links added.
[2019-07-14 15:10] VITALS: BP 151/78
--- NOTE | 2019-07-14 17:04 | NUR ---
DC PLAN SON CALLED SAID THAT HE WAS VERY OVERWHELMED OVER THE WHOLE SITUATION. UPSET THAT NOBODY TALKING TO HIM. EXPLAINED TO SON THAT I HAD SPOKEN TO HIM WHEN PATIENT HAD ARRIVED BECAUSE HE WAS NOT ABLE TO ANSWER QUESTIONS AT THE TIME. AT THAT TIME HE SAID THAT HE FELT PATIENT WOULD BE SAFE GOING HOME AND THAT HE COULD CARE FOR FATHER. SAID HE HAD THOUGHT SO UNTIL HE SAW HOW LONG HE WAS IN THE HOSPITAL AND THE LEVEL OF NEED HIS DAD WOULD NEED. I ASKED ABOUT SENDING FATHER TO A SNF SINCE HE DID NOT FEEL HE WOULD BE SAFE TO RETURN HOME. NOT ONLY FOR PATIENT BUT ALSO FOR MOTHER WHO HAS BEEN SICK HER SELF. SAID HE COULD NOT ANSWER THAT IT WAS TO SOON TO THINK ABOUT AND NEEDED TO TALK TO DOCTOR. SPOKE TO DR. SPICER ON SPEAKER CALLED PATIENT IN ROOM LET HIM KNOW ABOUT CONCERNS SON HAD AND FINALLY WAS HONEST ABOUT ABILITY. AT FIRST HE TOLD DR. SPICER THAT HE WAS WALKING AND COULD MAKE IT THE BATHROOM AFTER QUESTIONING ABOUT WHAT HE DID WITH PT HE ADMITTED HE GETS WINDED WHEN AMBULATING. AFTER ASKING HIM TO BE HONEST ABOUT ABILITY PATIENT AGREED THAT HE NEEDS TO GO TO A FACILITY FOR SHORT TERM THERAPY. PATIENT ALSO GAVE PERMISSION FOR MD TO TALK TO SON. CALLED SON IKER [phone]. PLACED ON SPEAKER. MD ANSWERED QUESTIONS AND CONCERNS SON HAD. SON PASSED PHONE TO MOTHER. PATIENT HAD MANY CONCERNS. STARTED TALKING ABOUT HER OWN HISTORY AND HOW SHE IS EASILY SICKED WITH PNEUMONIA AND CONCERNED THAT SPOUSE WILL RE INFECT HER OR GET HER SICK AGAIN. DR. SPICER TRIED TO EXPLAIN THAT NEW PLAN WAS FOR PATIENT TO GO TO FACILITY. SPOUSE INTERRUPTED MD STARTED TALKING ABOUT HER FATHER OR GRANDFATHER AND ABOUT AKERS STATE AND DIFFICULTIES. VERY CONFUNSING. DR. NOLASCO TRIED TO GET BACK TO TOPIC BECAME UPSET. SAID HE HAD TO LISTEN TO HER. DR. APODACA EXPLAINED THAT HE WAS IN THE ER AND HAD SEVERAL PATIENT WAITING FOR HIM. SHE SAID " I DONT CARE ABOUT THEM" I WANT YOU TO LISTEN. DR. SPICER TRIED TO TALK AGAIN ASKED IF HE COULD TALK TO SON. SHE SAID " NO IM NOT GOING TO PASS HIM THE PHONE" "I AM GOING TO HANG UP ON YOU" I MAKE THE DECISIONS" DR. SPICER AT THIS TIME HAD TO GO TO ROOM WITH PATIENT WITH CARDIAC TAMPONODE AND UNABLE TO CONTINUE CONVERSATION. LET DIRECTOR, HOME ORGANIZER, NURSE, PATIENT ADVOCATE KNOW OF CONVERSATION. Addendum: 07/14/19 at 1722 by DANNIE LEWIS RN CM Amended: Links added.
--- NOTE | 2019-07-14 17:25 | NUR ---
SUSI BENNETT - PERMISSION HAD BEEN OBTAINED ON SPEAKER PHONE FROM PATIENT TO GO TO SNF. EXPLAINED TO PATIENT THAT HE WOULD HAVE TO GO TO A FACILITY THAT WAS TAKING COVID PATIENTS. VERBALIZED UNDERSTANDING. SON CALLED BACK SPOKE TO TOWER SWITCH OPERATOR REFUSED TO TRANSFERED SAID TO GIVE ME A MESSAGE THAT THEY WOULD TRY THE FACILITY WEEK BY WEEK. INFO SENT TO [facility]. SAID SINCE NEW COVID NEEDED TO CLEAR THROUGH THE [facility]. SPOKE TO [facility] WITH NUMBER SISI PROVIDED. SAID SHE NEEDS TO GET APPROVAL FROM [facility] SINCE THERE IS A CITY BAN ON TRANSFERES AT THIS TIME. DID LET HER KNOW [facility] AWARE OF COVID ALREADY HAVE COVIDS IN HOUSE FELT THEY COULD CARE FOR PATIENT. SAID WOULD CALL ME BACK. NO CALL BACK OF [phone]. DID GIVE HER MY NUMBER OFFICE NUMBER AND EMAIL. Addendum: 07/14/19 at 1739 by DANNIE LEWIS RN CM Amended: Links added.
[2019-07-14] MEDS: METFORMIN HCL 500 MG TABLET PO SCH (17:27)
[2019-07-14] MEDS: ENOXAPARIN SODIUM 40 MG/0.4 ML SYRINGE SQ SCH (18:15)
[2019-07-14 19:46] VITALS: BP 153/78
[2019-07-14] MEDS: INSULIN GLARGINE 100 UNITS/ML 10 ML VIAL SQ SCH (21:16)
[2019-07-14 23:45] VITALS: BP 123/74
[2019-07-15 04:30] VITALS: BP 142/69
[2019-07-15 05:12] LABS: BASOPHILS % (AUTO) 0.3 % (0.0-5.0); EOSINOPHILS % (AUTO) 1.9 % (0.0-8.0); HEMATOCRIT 43.3 % (42-54); LYMPHOCYTES % (AUTO) 21.6 % (21.0-51.0); MEAN CORPUSCULAR HEMOGLOBIN 29.7 pg (27.0-33.0); MONOCYTES % (AUTO) 9.6 % (3.0-13.0); NEUTROPHILS % (AUTO) 64.3 % (40.0-77.0); PLATELET COUNT (AUTO) 451 K/uL (130-400); RED BLOOD CELL COUNT(AUTO) 4.81 MIL/uL (4.50-6.20); RED CELL DISTRIBUTION WIDTH 14.2 % (11.0-15.5); WHITE BLOOD COUNT (AUTO) 14.6 K/uL (4.8-10.8)
[2019-07-15 05:29] LABS: ALBUMIN 2.8 g/dL (3.5-5.0); BILIRUBIN,TOTAL 0.3 mg/dL (0.2-1.0); CREATININE 0.6 mg/dL (0.5-1.5); POTASSIUM 3.7 mmol/L (3.5-5.1); TOTAL PROTEIN, SERUM 7.1 g/dL (6.0-8.3)
[2019-07-15] MEDS: INSULIN LISPRO 100 UNIT/ML 3ML SQ SCH ×4 (06:25→20:46)
[2019-07-15 08:00] VITALS: BP_SYST 117; BP_SYST 126; BP_DIAS 74; BP_DIAS 81
[2019-07-15] MEDS: PREDNISONE 10 MG TABLET PO SCH (09:24)
[2019-07-15] MEDS: FAMOTIDINE 20MG TAB 20 MG TAB PO SCH ×2 (09:24→20:47)
[2019-07-15] MEDS: METFORMIN HCL 500 MG TABLET PO SCH ×2 (09:24→16:53)
[2019-07-15] MEDS: ENOXAPARIN SODIUM 40 MG/0.4 ML SYRINGE SQ SCH (09:40)
[2019-07-15 12:26] VITALS: BP 128/74
--- NOTE | 2019-07-15 13:00 | NUR ---
cm note, spoke to Chely CM director,state she has spoke to tommie from [facility], and are not able to accept pt until adequate staffing. also, spoke to Paris at [facility], who states they are unable to accept pt that patients that are from another facility and tested Covid positive must return back to their original facility. also states that as per the health department, pts that are positive covid from facilities, also must be retested and wait and get another test in 14 days that is negative prior to accepting. updated Dio Salinas CM director on above.
--- NOTE | 2019-07-15 14:40 | NUR ---
RD FOLLOW UP NOTE Pt tolerating 75gm CCD with report of GI distress, good PO at 100%. Pt LBM 07/14/19. Recommend continue current diet order. RD to continue to monitor. Please notify as additional nutrition concerns arise. Thank you. Addendum: 07/15/19 at [address] Amended: Links added.
[2019-07-15 16:39] VITALS: BP 128/74
[2019-07-15 20:15] VITALS: BP 149/79
[2019-07-15] MEDS: INSULIN GLARGINE 100 UNITS/ML 10 ML VIAL SQ SCH (20:46)
[2019-07-15 23:58] VITALS: BP 123/75
[2019-07-16 03:27] VITALS: BP 125/78
[2019-07-16] MEDS: INSULIN LISPRO 100 UNIT/ML 3ML SQ SCH ×4 (05:47→20:44)
[2019-07-16] MEDS: FAMOTIDINE 20MG TAB 20 MG TAB PO SCH ×2 (07:46→21:17)
[2019-07-16] MEDS: PREDNISONE 10 MG TABLET PO SCH (07:46)
[2019-07-16] MEDS: METFORMIN HCL 500 MG TABLET PO SCH ×2 (07:47→16:49)
[2019-07-16] MEDS: ENOXAPARIN SODIUM 40 MG/0.4 ML SYRINGE SQ SCH (07:47)
[2019-07-16 08:04] VITALS: BP 162/78
--- NOTE | 2019-07-16 09:10 | NUR ---
ASSESSMENT PT IS AAOX3 DENIES CP DENIES SOB WHILE AT REST. CURRENTLY ON O2 3LPM NC. SITTING UPRIGHT IN BED. AM MEDS GIVEN, BREAKFAST TOLERATED. CALL LIGHT WITHIN REACH.
[2019-07-16 12:10] VITALS: BP 128/72
[2019-07-16 17:02] VITALS: BP 124/72
--- NOTE | 2019-07-16 18:30 | NUR ---
STATUS NO COMPLAINTS THROUGHOUT THE DAY. SITTING UP IN BED. CALL LIGHT WITHIN REACH.
[2019-07-16 19:35] VITALS: BP 119/69
[2019-07-16] MEDS: INSULIN GLARGINE 100 UNITS/ML 10 ML VIAL SQ SCH (20:43)
[2019-07-17] VITALS (7 sets, daily range): BP systolic 117–140; BP diastolic 66–82
[2019-07-17 05:25] LABS: BASOPHILS % (AUTO) 0.5 % (0.0-5.0); EOSINOPHILS % (AUTO) 3.3 % (0.0-8.0); HEMATOCRIT 40.9 % (42-54); LYMPHOCYTES % (AUTO) 30.4 % (21.0-51.0); MEAN CORPUSCULAR HEMOGLOBIN 30.1 pg (27.0-33.0); MEAN CORPUSCULAR HGB CONC 33.3 g/dL (32.0-36.0); MEAN CORPUSCULAR VOLUME 90.5 fL (79-99); MONOCYTES % (AUTO) 8.6 % (3.0-13.0); NEUTROPHILS % (AUTO) 55.6 % (40.0-77.0); PLATELET COUNT (AUTO) 374 K/uL (130-400); RED BLOOD CELL COUNT(AUTO) 4.52 MIL/uL (4.50-6.20); RED CELL DISTRIBUTION WIDTH 14.4 % (11.0-15.5); WHITE BLOOD COUNT (AUTO) 10.9 K/uL (4.8-10.8)
[2019-07-17 05:47] LABS: CREATININE 0.5 mg/dL (0.5-1.5); POTASSIUM 3.4 mmol/L (3.5-5.1)
[2019-07-17] MEDS: INSULIN LISPRO 100 UNIT/ML 3ML SQ SCH ×4 (05:47→20:50)
[2019-07-17] MEDS: POTASSIUM CHLORIDE 10% ELIXIR 20 MEQ/15 ML UDCUP PO PRN ×2 (06:22→07:39)
[2019-07-17] MEDS: METFORMIN HCL 500 MG TABLET PO SCH ×2 (07:40→16:36)
[2019-07-17] MEDS: ENOXAPARIN SODIUM 40 MG/0.4 ML SYRINGE SQ SCH (07:40)
[2019-07-17] MEDS: FAMOTIDINE 20MG TAB 20 MG TAB PO SCH ×2 (07:40→20:52)
[2019-07-17] MEDS ORDERED: PREDNISONE 10 MG TABLET PO SCH (09:00)
[2019-07-17] MEDS: INSULIN GLARGINE 100 UNITS/ML 10 ML VIAL SQ SCH (20:51)
[2019-07-18 03:23] VITALS: BP 143/75
[2019-07-18] MEDS: INSULIN LISPRO 100 UNIT/ML 3ML SQ SCH ×4 (05:54→20:32)
[2019-07-18 06:02] LABS: BASOPHILS % (AUTO) 0.3 % (0.0-5.0); EOSINOPHILS % (AUTO) 2.3 % (0.0-8.0); HEMATOCRIT 40.9 % (42-54); LYMPHOCYTES % (AUTO) 22.1 % (21.0-51.0); MEAN CORPUSCULAR HEMOGLOBIN 30.7 pg (27.0-33.0); MEAN CORPUSCULAR VOLUME 90.3 fL (79-99); MONOCYTES % (AUTO) 7.8 % (3.0-13.0); PLATELET COUNT (AUTO) 355 K/uL (130-400); RED BLOOD CELL COUNT(AUTO) 4.53 MIL/uL (4.50-6.20); RED CELL DISTRIBUTION WIDTH 14.4 % (11.0-15.5); WHITE BLOOD COUNT (AUTO) 12.4 K/uL (4.8-10.8)
[2019-07-18 06:24] LABS: CREATININE 0.5 mg/dL (0.5-1.5); POTASSIUM 3.6 mmol/L (3.5-5.1)
[2019-07-18] MEDS: POTASSIUM CHLORIDE 10% ELIXIR 20 MEQ/15 ML UDCUP PO PRN ×2 (06:49→08:53)
[2019-07-18 08:22] VITALS: BP 110/73
[2019-07-18] MEDS: METFORMIN HCL 500 MG TABLET PO SCH ×2 (08:52→16:23)
[2019-07-18] MEDS: FAMOTIDINE 20MG TAB 20 MG TAB PO SCH ×2 (08:52→20:21)
[2019-07-18] MEDS: ENOXAPARIN SODIUM 40 MG/0.4 ML SYRINGE SQ SCH (08:52)
[2019-07-18 12:07] VITALS: BP 114/67
--- NOTE | 2019-07-18 12:19 | NUR ---
DC PLAN RECEIVED CALL FROM INSURANCE. UPDATED ON SITUATION. FAMILY REFUSED FOR PATIENT TO RETURN HOME. INFO SENT TO FACILITY ACCORDING TO COUNTY WANT A SECOND COVID TEST TO GO TO A FACILITY. PATIENT ADVOCATE SAID FAMILY THINKING ABOUT TAKING PATIENT HOME. WANT TO TALK TO DR. SOTO AND RESAW FEEDER. LET CHARGE NURSE KNOW OF REQUEST. Addendum: 07/18/19 at 1221 by DANNIE LEWIS RN CM Amended: Links added.
--- NOTE | 2019-07-18 14:30 | NUR ---
DCP STATUS INFORMED BY FARNAZ & DANNIE ZELAYA SON & PT'S SPOUSE REQUESTING TO SPEAK W/DR SOTO & STARCHMAKER. @ [phone] DR SOTO CALLED & INFORMED PT'S FAMILY REQUEST. DR SOTO TO SPEAK W/FAMILY TOMORROW.
[2019-07-18 16:29] VITALS: BP 118/66
--- NOTE | 2019-07-18 19:10 | NUR ---
MD VISIT DR MEDRANO IN TO SEE PT. UPDATED ON PT'S STATUS & PLAN OF CARE. CALL PLACED TO PT'S SON, IKER, TO SPEAK TO DR MEDRANO. NO RESPONSE.
[2019-07-18 20:15] VITALS: BP 126/74
[2019-07-18] MEDS: INSULIN GLARGINE 100 UNITS/ML 10 ML VIAL SQ SCH (20:22)
[2019-07-18] MEDS ORDERED: TEMAZEPAM 15 MG CAPSULE PO SCH (21:00)
--- NOTE | 2019-07-18 23:28 | NUR ---
RECEIVED Received pt from 2nd floor,pt aao x 3,denies pain or discomfort.Placed on droplet precaution.
[2019-07-18 23:47] VITALS: BP 138/88
[2019-07-19 04:00] VITALS: BP 136/76
[2019-07-19] MEDS: INSULIN LISPRO 100 UNIT/ML 3ML SQ SCH ×4 (05:57→20:04)
[2019-07-19 07:00] VITALS: BP 102/64
[2019-07-19] MEDS: METFORMIN HCL 500 MG TABLET PO SCH ×2 (08:00→14:52)
[2019-07-19] MEDS: FAMOTIDINE 20MG TAB 20 MG TAB PO SCH ×2 (09:10→20:02)
[2019-07-19] MEDS: ENOXAPARIN SODIUM 40 MG/0.4 ML SYRINGE SQ SCH (09:10)
--- NOTE | 2019-07-19 10:24 | NUR ---
BONBON CREAM WARMER FROM INSURANCE CALLED LEROY SHAVER CM FROM [facility] [phone] CALLED FOR UPDATE- AVAILABLE FOR DC NEEDS. UPDATED HER ON DATE OF 2ND COVID TEST,07/18 PLANS FOR DISCHARGE IN [place], RN NOTES 07/[address] SOTO WITH SPEAK TO FAMILY TODAY 07/18 RE STATUS. ADVISED HER THAT PT IS STILL ON OXYGEN 2L MA LEROY STATES AVAILABLE TO HELP WITH PLACEMENT VS HOME RESOURCES. Addendum: 07/19/19 at 1028 by VIV MAX RN CM Amended: Links added.
[2019-07-19 11:40] VITALS: BP 120/78
[2019-07-19 15:50] VITALS: BP 120/65
[2019-07-19 19:41] VITALS: BP 117/75
[2019-07-19] MEDS: INSULIN GLARGINE 100 UNITS/ML 10 ML VIAL SQ SCH (20:03)
[2019-07-19 22:53] VITALS: BP 102/62
[2019-07-20] MEDS: INSULIN LISPRO 100 UNIT/ML 3ML SQ SCH ×4 (04:30→21:00)
[2019-07-20 04:57] VITALS: BP 116/70
[2019-07-20 05:50] LABS: BASOPHILS % (AUTO) 0.6 % (0.0-5.0); EOSINOPHILS % (AUTO) 3.3 % (0.0-8.0); HEMATOCRIT 41.8 % (42-54); LYMPHOCYTES % (AUTO) 20.5 % (21.0-51.0); MEAN CORPUSCULAR HEMOGLOBIN 29.8 pg (27.0-33.0); MEAN CORPUSCULAR HGB CONC 33.7 g/dL (32.0-36.0); MEAN CORPUSCULAR VOLUME 88.4 fL (79-99); MONOCYTES % (AUTO) 8.9 % (3.0-13.0); NEUTROPHILS % (AUTO) 65.8 % (40.0-77.0); PLATELET COUNT (AUTO) 294 K/uL (130-400); RED BLOOD CELL COUNT(AUTO) 4.73 MIL/uL (4.50-6.20); RED CELL DISTRIBUTION WIDTH 14.2 % (11.0-15.5)
[2019-07-20 06:57] LABS: ALANINE AMINOTRANSFERASE 51 U/L (12-78); ALBUMIN 2.9 g/dL (3.5-5.0); ASPARTATE AMINOTRANSFERASE 32 U/L (10-37); BILIRUBIN,TOTAL 0.4 mg/dL (0.2-1.0); CARBON DIOXIDE 34 mmol/L (21-32); CHLORIDE 98 mmol/L (101-111); CREATININE 0.5 mg/dL (0.5-1.5); GLOMERULAR FILTR. RATE CALC 180 mL/min (>60); GLUCOSE,RANDOM 66 mg/dL (70-105); POTASSIUM 4.3 mmol/L (3.5-5.1); SODIUM SERUM 136 mmol/L (136-145); TOTAL PROTEIN, SERUM 7.2 g/dL (6.0-8.3); UREA NITROGEN, BLOOD 17 mg/dL (7-18)
[2019-07-20] MEDS: FAMOTIDINE 20MG TAB 20 MG TAB PO SCH ×2 (08:01→21:01)
[2019-07-20] MEDS: METFORMIN HCL 500 MG TABLET PO SCH ×2 (08:01→16:09)
[2019-07-20] MEDS: ENOXAPARIN SODIUM 40 MG/0.4 ML SYRINGE SQ SCH (08:02)
[2019-07-20 09:08] VITALS: BP 121/71
[2019-07-20 12:04] VITALS: BP 124/81
--- NOTE | 2019-07-20 12:34 | NUR ---
DISCHARGE PLANNING CALL REC'D FROM SON- YOBANI FOR ARRANGMENTS TODAY WITH HOME HEALTH AND OXYGEN VERBAL JUANITA RECD CALL TO DR. SOOT HOME [facility]ALTH, ORDERS RECD, FABYL TO [facility], CONFIRMED IN NETWORK WITH CLAU, PENDING REFERRAL/ ACCEPTANCE, CALL TO [facility] PLACED FOR HOME O2 EVAL, REFERRAL PREPARED
[2019-07-20] MEDS ORDERED: INSU100V12 SQ (13:53)
[2019-07-20] MEDS ORDERED: METF-444 PO (13:53)
--- NOTE | 2019-07-20 14:44 | NUR ---
Oxygen: Antoinette, REFERRAL SENT AT 1340 home health: [facility] SENT AT 1345 Addendum: 07/20/19 at 1445 by VIV MAX RN CM Amended: Links added.
[2019-07-20 16:22] VITALS: BP 127/78
--- NOTE | 2019-07-20 17:41 | NUR ---
PREP FOR DISCHARGE RECD CALL BACK FROM [facility] WHO STATES THAT OXYGEN WILL BE READY LATER ON TONIGHT IF FINANCIAL ARRANGEMENT MADE WITH FAMILY, ETC BARRIERS TO HOME HEALTH- DECLINED BY [place], DECLINED BY [facility]. CALL TO SON- WILL SEND EVERYTHING TO DR. MIN CORENLL, THE PMD, SO SHE CAN SET UP HOME HEALTH VIA TELE HEALTH CERT ON DISCHARGE. VERBALIZED UNDERSTANDING LONG LONG CONVERSATION WITH SPOUES WHO WANTS TO KNOW HOW MUCH THE OXYGEN IS GOING TO BE BEFORE IT IS DELIVERED, AND THAT SHE CANNOT AFFORD IT. DR. CORNEJO PREFERENCE IS TO DC TONIGHT- FAMILY /SPOUSE SAYS NO, NOT UNTIL AM.
[2019-07-20 20:07] VITALS: BP 133/73
[2019-07-20] MEDS: INSULIN GLARGINE 100 UNITS/ML 10 ML VIAL SQ SCH (21:00)
[2019-07-21 00:11] VITALS: BP 127/77
[2019-07-21 06:31] VITALS: BP 121/76
[2019-07-21] MEDS: INSULIN LISPRO 100 UNIT/ML 3ML SQ SCH (07:30)
[2019-07-21 09:03] VITALS: BP 117/75
[2019-07-21] MEDS: FAMOTIDINE 20MG TAB 20 MG TAB PO SCH (09:25)
[2019-07-21] MEDS: METFORMIN HCL 500 MG TABLET PO SCH (09:25)
[2019-07-21] MEDS: ENOXAPARIN SODIUM 40 MG/0.4 ML SYRINGE SQ SCH (09:25)
--- NOTE | 2019-07-21 11:11 | NUR ---
ALL INFO SENT TO THE [facility] FOR A TELE HEALTH APPOINTMENT TO BE ARRANGED BY THE SON ON DISCHARGE Addendum: 07/21/19 at 1112 by VIV MAX RN CM Amended: Links added.
[2019-07-21 12:57] VITALS: BP 119/72
--- NOTE | 2019-07-21 14:46 | NUR ---
CALL REC'D FROM SON WANTS CM HERE TO TRY AGAIN TO SET UP HOME HEALTH THROUGH DR. SOTO, IT WILL TAKE SEVERAL DAYS FOR TELE CERT W DR. GUERRERO CALL TO DR. MEYER, WRITTEN SCRIPT OBTAINE, ADDED TO PKT SENDING TO [facility], ONE OF THE COMPANIES THAT LEROY SHAVER CM ADVISED WAS IN NETWORK. CALL REC'D BACK FOR HH THAT [facility] WAS NOT IN NETWORK AND THAT PT HAS HIGH DEDUCTIBLE , LEROY'S NUMBER GIVEN TO [facility] AND WILL EXPECT RETURN CALL.
--- NOTE | 2019-07-21 16:06 | NUR ---
STILL WITH PROBLEMS SETTING UP HOME HEALTH CALL REC'D FROM [facility]. WILL NOT TAKE PATIENT BECAUSE HIGH DEDUCTIBLE AND HIGH CO PAYS. WOULD BE LIKE A PRIVATE WILL DECLINE PATIENT CALL TO SON- JOHNATHONY.
== END 2019-07-21 13:45 | disposition home or self-care (01) | DRG 177 ==
LOC: EDH 16:55 → EDHIP 18:59 → 2BH 06-30 19:36 → EDHIP 06-30 20:38 → 2CH 07-01 02:50 → 2DH 07-12 11:29 → 4BH 07-18 22:09 → 2DH 07-19 08:56
PROVIDERS: ADMIT Internal Medicine; ATTEND Internal Medicine
DX: U07.1 COVID-19 (principal); J12.89 Other viral pneumonia; J96.01 Acute respiratory failure with hypoxia; J98.11 Atelectasis; D69.6 Thrombocytopenia, unspecified; E83.51 Hypocalcemia; E11.9 Type 2 diabetes mellitus without complications; I10 Essential (primary) hypertension; R53.81 Other malaise; Z74.01 Bed confinement status; Z83.3 Family history of diabetes mellitus
CPT/HCPCS: 36415; 36600; 71045; 71275; 80048; 80053; 82728; 82803; 82948; 83615; 83735; 83880; 84100; 84145; 85025; 85378; 85384; 86140; 87633; 87635; 93005; 94760; 97039; 99291; G0378; J0456; J0696; J1650; J1815; J2405; J2920; J7050; J7512; Q9967